=== PATIENT | male | born 1995 | race Asian ===

== ENCOUNTER 2020-01-29 21:21 | Emergency (ER) | payer OTHER ==
[~2020-01-29] VITALS: Ht 167.6 cm; Wt 77.1 kg
[2020-01-29 21:28] VITALS: Ht 167.6 cm; Wt 77.1 kg
[2020-01-29 22:03] VITALS: BP 151/74
== END 2020-01-29 22:03 | disposition home or self-care (01) ==
LOC: ED 21:21
DX: S93.491A Sprain of other ligament of right ankle, initial encounter (principal); X50.1XXA Overexertion from prolonged static or awkward postures, initial encounter; Y93.66 Activity, soccer; Y92.89 Other specified places as the place of occurrence of the external cause; Y99.8 Other external cause status